=== PATIENT | female | born 1965 | race Caucasian/White ===

== ENCOUNTER → 2017-06-10 | Outpatient (CLI) | payer OTHER ==
[~2017-06-10] MED LIST: CYCL10 PO; IBUP600 PO; NAPR500 PO; Norco 5-325 Ta1 EACH PO; OMEP20ER PO; PROACE100 PO; TRAM50 PO; Zofran Odt8 MG SL
[2017-06-10 16:26] LABS: Anion Gap 7 mmol/L (6-16); Blood Urea Nitrogen 13 mg/dL (8-24); Bun/Creatinine Ratio 23.3 (12.0-20.0); CO2, Blood 23 mmol/L (21-32); Calcium, Blood 8.1 mg/dL (8.5-10.1); Chloride, Blood 108 mmol/L (98-108); Creatinine, Blood 0.56 mg/dL (0.40-1.00); Glomerular Filtration Rate >60 (60-); Glucose, Blood 90 mg/dL (70-99); Potassium, Blood 3.9 mmol/L (3.5-5.5); Sodium, Blood 138 mmol/L (136-145)
== END ==
LOC: LAB EV 15:37 → LAB SHORT 15:37
PROVIDERS: Physician Assistant Medical
DX: R07.89 Other chest pain (principal)
CPT/HCPCS: 80048

== ENCOUNTER 2018-03-05 19:26 | Emergency (ER) | payer OTHER ==
[~2018-03-05] VITALS: Ht 154.9 cm; Wt 57.6 kg
[2018-03-05] MEDS ORDERED: Prilosec Otc20 MG (19:33)
[2018-03-05 20:02] LABS: BASOPHILS ABSOLUTE AUTO 0.04 K/mm3 (0.00-0.23); BASOPHILS PERCENT AUTO 0 % (0-2); EOSINOPHILS ABSOLUTE AUTO 0.05 K/mm3 (0.00-0.68); EOSINOPHILS PERCENT AUTO 1 % (0-6); Hematocrit 42.1 % (33.0-51.0); Hemoglobin 13.5 g/dL (11.5-16.0); IMMATURE GRAN ABSOLUTE AUTO 0.05 K/mm3 (0.00-0.10); IMMATURE GRAN PERCENT AUTO 1 % (0-1); LYMPHOCYTES ABSOLUTE AUTO 1.63 K/mm3 (0.84-5.20); LYMPHOCYTES PERCENT AUTO 18 % (21-46); MONOCYTES ABSOLUTE AUTO 0.76 K/mm3 (0.16-1.47); MONOCYTES PERCENT AUTO 9 % (4-13); Mean Corpuscular HGB 32.1 pg (26.0-34.0); Mean Corpuscular HGB Conc 32.1 g/dL (31.5-36.5); Mean Corpuscular Volume 100 fL (80-100); NEUTROPHILS ABSOLUTE AUTO 6.46 K/mm3 (1.96-9.15); NEUTROPHILS PERCENT AUTO 72 % (41-73); Platelet Count 291 K/mm3 (150-400); RDW Coefficient Variation 13.8 % (11.7-14.2); RDW Standard Deviation 50.8 fL (35.1-46.3); White Blood Cell Count 8.99 K/mm3 (4.00-11.30)
[2018-03-05 20:17] LABS: Alanine Aminotransfer (ALT/SGP 25 U/L (12-78); Albumin, Blood 2.6 g/dL (3.4-5.0); Albumin/Globulin Ratio 0.8 (0.8-1.8); Alk Phos 83 U/L (50-136); Anion Gap 10 mmol/L (6-16); Aspartate Aminotrans (AST/SGOT 24 U/L (12-37); Bilirubin, Total 0.7 mg/dL (0.1-1.0); Blood Urea Nitrogen 9 mg/dL (8-24); Bun/Creatinine Ratio 14.3 (12.0-20.0); CO2, Blood 19 mmol/L (21-32); Calcium, Blood 7.8 mg/dL (8.5-10.1); Chloride, Blood 114 mmol/L (98-108); Creatinine, Blood 0.63 mg/dL (0.40-1.00); Globulin, Blood 3.3 g/dL (2.2-4.0); Glomerular Filtration Rate >60 (60-); Glucose, Blood 101 mg/dL (70-99); Sodium, Blood 143 mmol/L (136-145); Total Protein, Blood 5.9 g/dL (6.4-8.2); Troponin I <0.015 ng/mL (0.000-0.040)
== END 2018-03-05 22:56 | disposition home or self-care (01) ==
LOC: ER 19:26
PROVIDERS: Emergency Medicine
DX: I51.7 Cardiomegaly (principal); R07.9 Chest pain, unspecified; F15.10 Other stimulant abuse, uncomplicated; F10.10 Alcohol abuse, uncomplicated; F41.9 Anxiety disorder, unspecified; K21.9 Gastro-esophageal reflux disease without esophagitis; Z79.899 Other long term (current) drug therapy
CPT/HCPCS: 70496; 70498; 71046; 71275; 80053; 84484; 85025; 93005; 93010; 96374; 96375; 99285-25; J0780; J1170; J1200; Q9967

== ENCOUNTER → 2018-03-12 | Outpatient (CLI) | payer OTHER ==
[~2018-03-12] MED LIST changes: +Prilosec Otc20 MG
[2018-03-12 15:03] LABS: BASOPHILS ABSOLUTE AUTO 0.04 K/mm3 (0.00-0.23); BASOPHILS PERCENT AUTO 1 % (0-2); EOSINOPHILS ABSOLUTE AUTO 0.06 K/mm3 (0.00-0.68); EOSINOPHILS PERCENT AUTO 1 % (0-6); Hematocrit 43.1 % (33.0-51.0); Hemoglobin 14.4 g/dL (11.5-16.0); IMMATURE GRAN PERCENT AUTO 1 % (0-1); LYMPHOCYTES ABSOLUTE AUTO 1.68 K/mm3 (0.84-5.20); LYMPHOCYTES PERCENT AUTO 20 % (21-46); MONOCYTES ABSOLUTE AUTO 0.72 K/mm3 (0.16-1.47); MONOCYTES PERCENT AUTO 8 % (4-13); Mean Corpuscular HGB 31.7 pg (26.0-34.0); Mean Corpuscular HGB Conc 33.4 g/dL (31.5-36.5); Mean Platelet Volume 9.8 fL (9.1-12.4); NEUTROPHILS ABSOLUTE AUTO 5.97 K/mm3 (1.96-9.15); NEUTROPHILS PERCENT AUTO 70 % (41-73); Platelet Count 344 K/mm3 (150-400); RDW Coefficient Variation 14.1 % (11.7-14.2); RDW Standard Deviation 49.4 fL (35.1-46.3); Red Blood Cell Count 4.54 M/mm3 (3.80-5.20); White Blood Cell Count 8.57 K/mm3 (4.00-11.30)
[2018-03-12 15:05] LABS: Mean Corpuscular Volume 95 fL (80-100)
[2018-03-12 15:28] LABS: Alanine Aminotransfer (ALT/SGP 22 U/L (12-78); Albumin, Blood 2.7 g/dL (3.4-5.0); Albumin/Globulin Ratio 0.7 (0.8-1.8); Alk Phos 91 U/L (40-126); Anion Gap 9 mmol/L (6-16); Aspartate Aminotrans (AST/SGOT 24 U/L (12-37); Bilirubin, Total 0.9 mg/dL (0.1-1.0); Blood Urea Nitrogen 15 mg/dL (8-24); CO2, Blood 25 mmol/L (21-32); Calcium, Blood 8.4 mg/dL (8.5-10.1); Chloride, Blood 104 mmol/L (98-108); Creatinine, Blood 0.79 mg/dL (0.40-1.00); Globulin, Blood 3.7 g/dL (2.2-4.0); Glomerular Filtration Rate >60 (60-); Glucose, Blood 100 mg/dL (70-99); Sodium, Blood 138 mmol/L (136-145); Total Protein, Blood 6.4 g/dL (6.4-8.2)
[2018-03-12 15:29] LABS: Troponin I <0.017 ng/mL (0.000-0.040)
== END ==
LOC: LAB EV 15:00 → LAB SHORT 15:00
PROVIDERS: Physician Assistant Medical
DX: R07.89 Other chest pain (principal)
CPT/HCPCS: 80053; 83880; 84484; 85025

== ENCOUNTER 2019-08-21 16:56 | Emergency (ER) | payer OTHER ==
[~2019-08-21] VITALS: Ht 154.9 cm; Wt 68.0 kg
[~2019-08-21 16:56] MED LIST changes: +AMLO5 PO; +ATOR20 PO; +Aspirin EC81 MG PO; +FUROSEMIDE40 MG PO; +HYDCHL25 PO; +Humibid-LA 600600 MG PO; +LOSA50 PO; +Lasix40 MG PO; +POTCHL10ER PO; -Prilosec Otc20 MG; +Prilosec Otc20 MG PO; +REVATIO10 MG/1 ML PO
[2019-08-21] MEDS ORDERED: AMLO5 PO (17:12)
[2019-08-21 17:32] LABS: BASOPHILS ABSOLUTE AUTO 0.04 K/mm3 (0.00-0.23); BASOPHILS PERCENT AUTO 1 % (0-2); EOSINOPHILS ABSOLUTE AUTO 0.09 K/mm3 (0.00-0.68); EOSINOPHILS PERCENT AUTO 2 % (0-6); Hematocrit 37.9 % (33.0-51.0); Hemoglobin 12.6 g/dL (11.5-16.0); IMMATURE GRAN ABSOLUTE AUTO 0.03 K/mm3 (0.00-0.10); IMMATURE GRAN PERCENT AUTO 1 % (0-1); LYMPHOCYTES ABSOLUTE AUTO 1.28 K/mm3 (0.84-5.20); LYMPHOCYTES PERCENT AUTO 26 % (21-46); MONOCYTES ABSOLUTE AUTO 0.76 K/mm3 (0.16-1.47); MONOCYTES PERCENT AUTO 15 % (4-13); Mean Corpuscular HGB 32.7 pg (26.0-34.0); Mean Corpuscular HGB Conc 33.2 g/dL (31.5-36.5); Mean Corpuscular Volume 98 fL (80-100); Mean Platelet Volume 9.2 fL (9.1-12.4); NEUTROPHILS ABSOLUTE AUTO 2.82 K/mm3 (1.96-9.15); NEUTROPHILS PERCENT AUTO 56 % (41-73); Platelet Count 252 K/mm3 (150-400); RDW Coefficient Variation 13.3 % (11.7-14.2); RDW Standard Deviation 48.6 fL (35.1-46.3); Red Blood Cell Count 3.85 M/mm3 (3.80-5.20); White Blood Cell Count 5.02 K/mm3 (4.00-11.30)
[2019-08-21 17:56] LABS: Anion Gap 9 mmol/L (6-16); Blood Urea Nitrogen 5 mg/dL (8-24); Bun/Creatinine Ratio 8.7 (12.0-20.0); CO2, Blood 22 mmol/L (21-32); Calcium, Blood 7.6 mg/dL (8.5-10.1); Chloride, Blood 110 mmol/L (98-108); Creatinine, Blood 0.58 mg/dL (0.40-1.00); Glomerular Filtration Rate >60 (60-); Glucose, Blood 81 mg/dL (70-99); Potassium, Blood 3.8 mmol/L (3.5-5.5); Sodium, Blood 141 mmol/L (136-145); Troponin I <0.015 ng/mL (0.000-0.040)
== END 2019-08-21 19:03 | disposition home or self-care (01) ==
LOC: ER 16:56
PROVIDERS: Physician Assistant
DX: I27.20 Pulmonary hypertension, unspecified (principal); I50.9 Heart failure, unspecified; F41.9 Anxiety disorder, unspecified; K21.9 Gastro-esophageal reflux disease without esophagitis; Z88.5 Allergy status to narcotic agent; Z88.8 Allergy status to other drugs, medicaments and biological substances; Z79.899 Other long term (current) drug therapy; Z79.82 Long term (current) use of aspirin; Z87.891 Personal history of nicotine dependence
CPT/HCPCS: 36415; 71046; 80048; 83880; 84484; 85025; 93005; 93010; 99285-25

== ENCOUNTER 2019-12-23 19:57 | Emergency (ER) | payer OTHER ==
[~2019-12-23] VITALS: Ht 154.9 cm; Wt 68.0 kg
[~2019-12-23 19:57] MED LIST changes: +HYDHCL25 PO; +LIDO700A20 TOP
[2019-12-23 22:26] LABS: Body Fluid Crystals NEG (NEGATIVE)
[2019-12-23 22:29] LABS: BODY FLUID RBC 0.008 M/mm3 (0-0); RBC Count, Synovial Fluid 8000 /mm3 (0-0)
[2019-12-23 22:42] LABS: WBC Count, Synovial Fluid 60640 /mm3 (0-180)
[2019-12-23 22:48] LABS: Lymphs, Synovial Fluid 8 % (0-15); Monocytes/Macrophages, Synovia 1 % (0-65); Neutrophils, Synovial Fluid 91 % (0-24)
[2019-12-23 22:49] LABS: Appearance, Synovial Fluid Cloudy (Clear); Color, Synovial Fluid Dark Yellow (None-P Yel)
== END 2019-12-23 22:21 | disposition home or self-care (01) ==
LOC: ER 19:57
PROVIDERS: Physician Assistant
DX: M25.562 Pain in left knee (principal); F41.9 Anxiety disorder, unspecified; K21.9 Gastro-esophageal reflux disease without esophagitis; I12.9 Hypertensive chronic kidney disease with stage 1 through stage 4 chronic kidney disease, or unspecified chronic kidney disease; I50.9 Heart failure, unspecified; Z88.5 Allergy status to narcotic agent; Z88.8 Allergy status to other drugs, medicaments and biological substances; Z79.82 Long term (current) use of aspirin; Z79.899 Other long term (current) drug therapy; Z79.891 Long term (current) use of opiate analgesic
CPT/HCPCS: 20610; 73564; 89051; 89060; 99283-25; J3301

== ENCOUNTER 2020-08-07 12:32 | Inpatient (IN) | payer OTHER ==
[~2020-08-07] VITALS: Ht 154.9 cm; Wt 65.3 kg
[2020-08-07 13:14] LABS: BASOPHILS ABSOLUTE AUTO 0.04 K/mm3 (0.00-0.23); BASOPHILS PERCENT AUTO 1 % (0-2); EOSINOPHILS PERCENT AUTO 2 % (0-6); Hematocrit 37.4 % (33.0-51.0); Hemoglobin 12.4 g/dL (11.5-16.0); IMMATURE GRAN ABSOLUTE AUTO 0.05 K/mm3 (0.00-0.10); IMMATURE GRAN PERCENT AUTO 1 % (0-1); LYMPHOCYTES ABSOLUTE AUTO 0.83 K/mm3 (0.84-5.20); LYMPHOCYTES PERCENT AUTO 14 % (21-46); MONOCYTES ABSOLUTE AUTO 0.55 K/mm3 (0.16-1.47); MONOCYTES PERCENT AUTO 10 % (4-13); Mean Corpuscular HGB 34.7 pg (26.0-34.0); Mean Corpuscular HGB Conc 33.2 g/dL (31.5-36.5); Mean Corpuscular Volume 105 fL (80-100); Mean Platelet Volume 9.4 fL (9.1-12.4); NEUTROPHILS PERCENT AUTO 73 % (41-73); Platelet Count 190 K/mm3 (150-400); RDW Coefficient Variation 14.6 % (11.7-14.2); RDW Standard Deviation 56.7 fL (35.1-46.3); Red Blood Cell Count 3.57 M/mm3 (3.80-5.20); White Blood Cell Count 5.77 K/mm3 (4.00-11.30)
[2020-08-07 13:39] LABS: Alanine Aminotransfer (ALT/SGP 105 U/L (12-78); Alk Phos 107 U/L (50-136); Anion Gap 11 mmol/L (6-16); Aspartate Aminotrans (AST/SGOT 213 U/L (12-37); Blood Urea Nitrogen 4 mg/dL (8-24); Bun/Creatinine Ratio 6.7 (12.0-20.0); CO2, Blood 20 mmol/L (21-32); Calcium, Blood 7.4 mg/dL (8.5-10.1); Chloride, Blood 106 mmol/L (98-108); Globulin, Blood 3.1 g/dL (2.2-4.0); Glomerular Filtration Rate >60 (60-); Glucose, Blood 86 mg/dL (70-99); Potassium, Blood 3.4 mmol/L (3.5-5.5); Sodium, Blood 137 mmol/L (136-145); Total Protein, Blood 6.1 g/dL (6.4-8.2); Troponin I <0.015 ng/mL (0.000-0.040)
[2020-08-07] MEDS ORDERED: XANAX0.25 MG PO (15:00)
[2020-08-07] MEDS ORDERED: POTA10T PO (15:03)
[2020-08-07] MEDS ORDERED: FUROSEMIDE20 MG PO (15:03)
[2020-08-07] MEDS ORDERED: OMEP20ER PO (15:17)
--- NOTE | 2020-08-07 16:45 | NUR ---
PT ARRIVED TO PCU VIA GURNEY FROM ED, REPORT OBTAINED, A/OX3, BUT SLEEPY, FOLLOWS COMMANDS WELL, DENIES PAIN, LUNGS ARE CLEAR DIM IN BASES, RESP EVEN AND UNLABORED, NO COUGH NOTED, IS ON 2 LITERS 02 BECAUSE SHE GOT SLEEPY FROM THE [place], HRR, TELE IN PLACE RUNNING SR PER MONITOR, SEE STRIP, NO EDEMA NOTED, PP FAINT, CAP REFILL <3SEC, VS STABLE, AFEBRILE, IV SITES ARE CLEAR AND PATENT, BTX 4 ABD FLAT SOFT NONTENDER, VOIDS WITHOUT DIFF, SKIN C/W/D, MAEW, CHRISTEN, ORIENTED TO ROOM LAYOUT AND CALL SYSTEM, CALL LIGHT IN REACH.
--- NOTE | 2020-08-07 17:13 | NUR ---
DR MACHUCA TO PT'S BEDSIDE. EKG COMPLETED ORDERED AND HANDED TO DR MACHUCA. VERBAL ORDERS RECEIVED FOR PULMONARY CTA AND SALINE. NURSING BINMAN NOTIFIED BY CREAM CHEESE MAKER OF STAT ECHO ORDER. DR MACHUCA OK WITH PT EATING AT THIS TIME, ORDER CHANGED. PRIMARY RN MINERVA UPDATED.
[2020-08-07] MEDS ORDERED: MELATONIN5 M1 PO (18:41)
--- NOTE | 2020-08-07 19:13 | NUR ---
DR. MACHUCA WAS IN, FELT THAT HER LOOSING CONCIOUSNESS WAS SECONDARY TO A DOSE OF FENTANYL, EKG DONE, ECHO DONE, AND IS ON HER WAY DOWN TO RADIOLOGY FOR CTA, NEW IV PLACED TO LAC.
--- NOTE | 2020-08-07 23:47 | NUR ---
PROVIDER 2199 - TALKED TO ROBERT MADDEN REGARDING PT'S SEVERE UPPER ABD/CP PAIN. DISCUSSED LABS, PRIOR EKG, PROGRESS REPORTS, ETC. PATHOLOGY LABORATORY AIDE WONDERING IF THIS IS PAIN IS RELATED TO SEVERE PUMLONARY HTN. LASIX IV ORDERED AND ADMINISTERED. DISCUSSED WITH PATHOLOGY LABORATORY AIDE THE POSSIBILITY OF PANCREATITIS. LIPASE ORDERED. 1MG IV DILAUDID ORDERED AND ADMINISTERED. PT'S PAIN LESSENING WITH THIS. NO REACTION NOTED. 2239 - DR BARRAZA CALLED WITH RESULTS OF CTA. CTA SHOWS ACUTE PANCREATITIS. NO CARDIAC ETIOLOGY NOTED. ROBERT MADDEN NOTIFIED. PLACING ORDERS NOW.
--- NOTE | 2020-08-08 05:36 | NUR ---
SHIFT SUMMARY POST CTA RESULTS SHOWING PANCREATITIS, IV DILAUDID SUCCESFUL AT LIMITING PAIN. PT'S PAIN VERY RECEPTIVE TO DILAUDID BUT PT DOES REQUIRE OXYGEN AFTER ASSESMENT DUE TO DESATURATION TO LOW 80'S SPO2. ONE EPISODE OF NAUSEA, MEDICATED PER EMAR SUCCESFULLY. FLUIDS INFUSING. PT STRICT NPO NOW. PT EDUCATED THAT HE HAS PANCREATITIS AND THE REASON FOR STRICT NPO. PT RECEPTIVE. USES CALL LIGHT APPROPRIATELY.
[2020-08-08 05:42] LABS: BASOPHILS ABSOLUTE AUTO 0.03 K/mm3 (0.00-0.23); BASOPHILS PERCENT AUTO 0 % (0-2); EOSINOPHILS ABSOLUTE AUTO 0.02 K/mm3 (0.00-0.68); EOSINOPHILS PERCENT AUTO 0 % (0-6); Hematocrit 40.8 % (33.0-51.0); Hemoglobin 13.3 g/dL (11.5-16.0); IMMATURE GRAN ABSOLUTE AUTO 0.05 K/mm3 (0.00-0.10); IMMATURE GRAN PERCENT AUTO 1 % (0-1); LYMPHOCYTES ABSOLUTE AUTO 0.49 K/mm3 (0.84-5.20); LYMPHOCYTES PERCENT AUTO 6 % (21-46); MONOCYTES ABSOLUTE AUTO 0.56 K/mm3 (0.16-1.47); MONOCYTES PERCENT AUTO 7 % (4-13); Mean Corpuscular HGB 34.5 pg (26.0-34.0); Mean Corpuscular HGB Conc 32.6 g/dL (31.5-36.5); Mean Corpuscular Volume 106 fL (80-100); Mean Platelet Volume 9.5 fL (9.1-12.4); NEUTROPHILS ABSOLUTE AUTO 7.49 K/mm3 (1.96-9.15); NEUTROPHILS PERCENT AUTO 87 % (41-73); Platelet Count 138 K/mm3 (150-400); RDW Coefficient Variation 14.9 % (11.7-14.2); RDW Standard Deviation 58.2 fL (35.1-46.3); Red Blood Cell Count 3.85 M/mm3 (3.80-5.20); White Blood Cell Count 8.64 K/mm3 (4.00-11.30)
[2020-08-08 05:58] LABS: Anion Gap 11 mmol/L (6-16); Blood Urea Nitrogen 8 mg/dL (8-24); Bun/Creatinine Ratio 8.5 (12.0-20.0); CO2, Blood 21 mmol/L (21-32); Calcium, Blood 7.3 mg/dL (8.5-10.1); Chloride, Blood 104 mmol/L (98-108); Creatinine, Blood 0.94 mg/dL (0.40-1.00); Glomerular Filtration Rate >60 (60-); Glucose, Blood 111 mg/dL (70-99); Potassium, Blood 4.3 mmol/L (3.5-5.5); Sodium, Blood 136 mmol/L (136-145)
[2020-08-08 08:49] LABS: CHOL/HDL RATIO 1.7; Cholesterol 191 mg/dL (50-200); HDL Cholesterol 114 mg/dL (>39); LDL/HDL RATIO 0.5; Low Density Lipoprotein Chol 53 mg/dL (0-110); Triglycerides 120 mg/dL (30-160); Very Low Density Lipoprot Chol 24 mg/dL (6-32)
--- NOTE | 2020-08-08 17:27 | NUR ---
SHIFT SUMMARY: ASSUMED CARE OF THE PATIENT AT 07:24 THIS AM, PATIENT HAS BEEN THIS EVENING SR IN THE 80'S - TO THE LOW 90'S ON 4.5 L VIA NC SAT AT 94-95 %SPO2 THIS EVENIN, DENIES CHEST PAIN BUT STILL IS HAVING UPPER QUANDRANT ABD PAIN THAT HAS GOTTEN HIGH A 7, BUT WITH REPOSITIONING, AND PAIN MEDS PER EMAR PATIENT HAS BEEN SAFETLY DOWN TO A 2-3, TODAL HAS BEEN INEFFECTIVE, BUT DILAUDED 1 MG ~ EVERY 3 HOURS HAS BEEN EFFECTIVELY TREATING HER PAIN. US OF THE ABD PREFORMED TODAY THAT HAS NOT BEEN SIGNED OF YET. PATIENT HAS ONLY BEEN REACHING THE 160'S WITH INCREASED LEVELS OF PAIN, PATIENT AMBULATES TO THE BEDSIDE WITH NO ISSUES, USES THE CALL LIGHT APPROPRIATELY.
--- NOTE | 2020-08-09 04:54 | NUR ---
SHIFT SUMMARY PATIENT FOUND TO BE A PLEASANT LADY WHO IS A&OX4. PAIN CONTROL BIG GOAL FOR PATIENT OVERNIGHT, PRN DILAUDID Q2H KEEPING AT TOLERABLE LEVEL. SR/ST ON THE MONITOR. ON 4L NC SATING LOW 90'S. [facility] [place] MD TO ORDER RESP PROTOCOL IN CASE NEEDED BREATHING TREATMENT. WAS ABLE TO CLEAR WHEEZING WITH COUGH AND MORE RELAXED BREATHING. IS GIVEN AND INSTRUCTED ON USE. WAS TRYING TO ADVANCE DIET TO CLD SLOWLY AND PATIENT NOT TOLERATING WELL WITH 2 EPISODES OF VOMITING OVERNIGHT. ABDOMEN SEEMED TO INCREASE AFTER INTAKE SO CONTINUEING TO TAKE IT SLOW. UP AD BRANDI TO BSC. NO ACUTE CONCERNS AT THIS TIME. WILL CONTINUE TO MONITOR UNTIL REPORT GIVEN TO DAYSHIFT RN.
[2020-08-09 05:13] LABS: Albumin/Globulin Ratio 0.9 (0.8-1.8); Bilirubin, Total 4.2 mg/dL (0.1-1.0); Bun/Creatinine Ratio 12.5 (12.0-20.0); Calcium, Blood 7.1 mg/dL (8.5-10.1); Creatinine, Blood 1.28 mg/dL (0.40-1.00); Globulin, Blood 3.3 g/dL (2.2-4.0); Magnesium, Blood 2.6 mg/dL (1.6-2.4); Phosphorus, Blood 1.5 mg/dL (2.5-4.9); Potassium, Blood 4.2 mmol/L (3.5-5.5); Total Protein, Blood 6.3 g/dL (6.4-8.2)
[2020-08-09 05:14] LABS: Hematocrit 38.2 % (33.0-51.0); Hemoglobin 12.6 g/dL (11.5-16.0); Mean Corpuscular HGB 35.1 pg (26.0-34.0); Mean Corpuscular Volume 106 fL (80-100); Mean Platelet Volume 9.9 fL (9.1-12.4); NRBC ABSOLUTE 0.12 K/mm3 (0.00-0.02); NRBC Auto 1.2 /100 WBC (0.0-0.2); RDW Coefficient Variation 15.6 % (11.7-14.2); RDW Standard Deviation 61.5 fL (35.1-46.3); Red Blood Cell Count 3.59 M/mm3 (3.80-5.20); White Blood Cell Count 9.81 K/mm3 (4.00-11.30)
[2020-08-09 05:16] LABS: Platelet Count 39 K/mm3 (150-400)
[2020-08-09 06:18] LABS: International Normalized Ratio 0.99; Prothrombin Time Results 10.7 Sec (9.7-11.5)
[2020-08-09 06:40] LABS: Platelet Count 39 K/mm3 (150-400)
[2020-08-09 12:03] LABS: Source, Urine Clean Catch
[2020-08-09 12:21] LABS: Appearance, Urine Clear (Clear); Blood, Urine 5+ (Neg); Color, Urine Amber (P-Yellow); Glucose Qualitative, Urine Neg (Neg); Ketones, Urine 3+ (Neg); Leukocyte Esterase, Urine 1+ (Neg); Nitrite, Urine Neg (Neg); Protein, Urine 3+ (Neg); Specific Gravity, Urine 1.025 (1.003-1.022); Urobilinogen, Urine 1+ (Normal)
[2020-08-09 13:14] LABS: Bilirubin, Urine 2+ (Neg)
[2020-08-09 13:16] LABS: Bacteria Many /hpf; Squamous Epithelial Cells Mod /hpf (Few)
--- NOTE | 2020-08-09 18:36 | NUR ---
SHIFT SUMMARY: PATIENT HAS BEEN FEELING MORE WEAK, AND USES CALL LIGHT APPORPRIATELY. PATIENT IS ON NC AT 4.5L TO KEEP SPO2>92-94. PATIENT HAS HAD CRITICAL PLATELETS FOUND LAST NIGHT, HELD LOVONOX, EDUCATEED ON INCETIVE SPIROMETRY, INCREASING WHEEXING IN THE UPPER RESPIRATORY TRACT, RT CONSULTED 2 TIMES WITH PATIENT ADN MULTIPLE TIMES WITH SRN AND RN, PROVIDER AWARE. PAIN HAS BEEN MANAGED WITH EMR ORDERS. SOME BLOOD IN HER URINE, PROVIDER AWARE.
[2020-08-10 03:44] LABS: BASOPHILS ABSOLUTE AUTO 0.04 K/mm3 (0.00-0.23); BASOPHILS PERCENT AUTO 1 % (0-2); EOSINOPHILS ABSOLUTE AUTO 0.18 K/mm3 (0.00-0.68); EOSINOPHILS PERCENT AUTO 2 % (0-6); Hematocrit 31.6 % (33.0-51.0); Hemoglobin 10.3 g/dL (11.5-16.0); Mean Corpuscular HGB 34.9 pg (26.0-34.0); Mean Corpuscular HGB Conc 32.6 g/dL (31.5-36.5); Mean Corpuscular Volume 107 fL (80-100); NRBC ABSOLUTE 0.12 K/mm3 (0.00-0.02); NRBC Auto 1.6 /100 WBC (0.0-0.2); RDW Coefficient Variation 15.9 % (11.7-14.2); RDW Standard Deviation 62.9 fL (35.1-46.3); Red Blood Cell Count 2.95 M/mm3 (3.80-5.20); White Blood Cell Count 7.37 K/mm3 (4.00-11.30)
[2020-08-10 03:47] LABS: IMMATURE GRAN ABSOLUTE AUTO 0.16 K/mm3 (0.00-0.10); IMMATURE GRAN PERCENT AUTO 2 % (0-1); LYMPHOCYTES ABSOLUTE AUTO 1.12 K/mm3 (0.84-5.20); LYMPHOCYTES PERCENT AUTO 15 % (21-46); MONOCYTES ABSOLUTE AUTO 0.58 K/mm3 (0.16-1.47); MONOCYTES PERCENT AUTO 8 % (4-13); NEUTROPHILS ABSOLUTE AUTO 5.29 K/mm3 (1.96-9.15); NEUTROPHILS PERCENT AUTO 72 % (41-73); Platelet Count 29 K/mm3 (150-400)
[2020-08-10 04:02] LABS: Albumin, Blood 2.6 g/dL (3.4-5.0); Albumin/Globulin Ratio 0.8 (0.8-1.8); Bun/Creatinine Ratio 12.7 (12.0-20.0); Calcium, Blood 6.8 mg/dL (8.5-10.1); Creatinine, Blood 1.18 mg/dL (0.40-1.00); Globulin, Blood 3.2 g/dL (2.2-4.0); Magnesium, Blood 2.2 mg/dL (1.6-2.4); Phosphorus, Blood 1.7 mg/dL (2.5-4.9); Potassium, Blood 3.8 mmol/L (3.5-5.5); Total Protein, Blood 5.8 g/dL (6.4-8.2)
--- NOTE | 2020-08-10 05:35 | NUR ---
SHIFT SUMMARY PT IS ALERT AND ORIENTED X4. VITALS HAVE BEEN STABLE WITH SATS ABOVE 92% ON 4L O2. THERE HAVE BEEN NO ACUTE CHANGES. CIWAS HAVE BEEN BELOW 8 T/O SHIFT. PT HAS BEEN VERY PAINFUL AND IS REQUIRING IV PAIN MEDICATIONS Q2 HOURS. PT IS UP TO BSC BY HERSELF AND IS TOLERATIG WELL. NS INFUSING. USES CALL LIGHT APPROPRIETLY.
--- NOTE | 2020-08-10 17:16 | NUR ---
UPDATE PHYSICIAN NOTIFIED OF PT'S INCREASE IN PAIN. ORDERS TO INCREASE IV PAIN MEDICATION AND D/C PO PAIN MEDICATION. WILL EDUCATE PER PHYSICIAN THAT PT WILL NOT BE ABLE TO PROGRESS WITH MORE PO INTAKE UNTIL PAIN IS UNDER CONTROL WITH PO PAIN MEDICATIONS.
--- NOTE | 2020-08-10 18:46 | NUR ---
SHIFT SUMMARY PT ALERT AND ORIENTED X 4. HR STABLE. BP STABLE. OXYGEN SATURATION MAINTAINED ABOVE 92% ON 4 L OF OXYGEN VIA NC. PT IND TO COMMODE NEEDED. PT REPORTS PAIN IN ABD T/O SHIFT. MEDICATED PER EMAR. PT TO CT SCAN THIS AFTERNOON. PHYSICIAN NOTIFIED OF PT'S INCREASE IN PAIN. ORDERS PROVDIED, SEE EMAR. WILL CONTINUE TO MONITOR UNTIL REPORT GIVEN TO NIGHTSHIFT RN.
[2020-08-11 04:13] LABS: BASOPHILS ABSOLUTE AUTO 0.05 K/mm3 (0.00-0.23); BASOPHILS PERCENT AUTO 1 % (0-2); Hematocrit 30.9 % (33.0-51.0); Hemoglobin 9.7 g/dL (11.5-16.0); LYMPHOCYTES ABSOLUTE AUTO 0.62 K/mm3 (0.84-5.20); LYMPHOCYTES PERCENT AUTO 7 % (21-46); MONOCYTES ABSOLUTE AUTO 0.79 K/mm3 (0.16-1.47); MONOCYTES PERCENT AUTO 8 % (4-13); Mean Corpuscular HGB 33.4 pg (26.0-34.0); Mean Corpuscular HGB Conc 31.4 g/dL (31.5-36.5); Mean Corpuscular Volume 107 fL (80-100); NRBC ABSOLUTE 0.09 K/mm3 (0.00-0.02); RDW Coefficient Variation 15.7 % (11.7-14.2); RDW Standard Deviation 61.3 fL (35.1-46.3)
[2020-08-11 04:18] LABS: EOSINOPHILS ABSOLUTE AUTO 0.05 K/mm3 (0.00-0.68); EOSINOPHILS PERCENT AUTO 1 % (0-6); IMMATURE GRAN PERCENT AUTO 4 % (0-1); Mean Platelet Volume 12.7 fL (9.1-12.4); NEUTROPHILS ABSOLUTE AUTO 7.49 K/mm3 (1.96-9.15); NEUTROPHILS PERCENT AUTO 80 % (41-73)
[2020-08-11 04:19] LABS: Platelet Count 41 K/mm3 (150-400)
[2020-08-11 04:31] LABS: Alanine Aminotransfer (ALT/SGP 63 U/L (12-78); Albumin, Blood 2.5 g/dL (3.4-5.0); Albumin/Globulin Ratio 0.7 (0.8-1.8); Alk Phos 84 U/L (50-136); Anion Gap 10 mmol/L (6-16); Aspartate Aminotrans (AST/SGOT 103 U/L (12-37); Bilirubin, Total 4.1 mg/dL (0.1-1.0); Blood Urea Nitrogen 12 mg/dL (8-24); Bun/Creatinine Ratio 13.3 (12.0-20.0); CO2, Blood 20 mmol/L (21-32); Calcium, Blood 7.3 mg/dL (8.5-10.1); Chloride, Blood 107 mmol/L (98-108); Globulin, Blood 3.6 g/dL (2.2-4.0); Glomerular Filtration Rate >60 (60-); Glucose, Blood 106 mg/dL (70-99); Sodium, Blood 137 mmol/L (136-145); Total Protein, Blood 6.1 g/dL (6.4-8.2)
[2020-08-11 04:33] LABS: BAND PERCENT MAN 4 % (0-8); BASOPHILS PERCENT MAN 0 % (0-2); EOSINOPHILS ABSOLUTE MAN 0.09 K/mm3 (0.00-0.68); EOSINOPHILS PERCENT MAN 1 % (0-6); LYMPHOCYTES ABSOLUTE MAN 0.28 K/mm3 (0.84-5.20); LYMPHOCYTES PERCENT MAN 3 % (21-46); METAMYELOCYTE ABSOLUTE MAN 0.09 K/mm3 (0.00-0.00); METAMYELOCYTE PERCENT MAN 1 % (0-0); MONOCYTES ABSOLUTE MAN 0.09 K/mm3 (0.16-1.47); MONOCYTES PERCENT MAN 1 % (4-13); NEUTROPHILS ABSOLUTE MAN 8.83 K/mm3 (1.96-9.15); SEG NEUTROPHILS PERCENT MAN 90 % (41-73); TOTAL CELLS COUNTED 100
--- NOTE | 2020-08-11 05:55 | NUR ---
SHIFT SUMMARY PATIENT IS A PLEASANT LADY WHO IS A&OX4, MAC, AND FOLLOWING COMMANDS. PAIN CONTROL BIG GOAL FOR PATIENT OVERNIGHT. PRN DILAUDID ALMOST EVERY 2H KEEPING AT TOLERABLE LEVEL. PAIN INCREASES WITH ANY ORAL INTAKE AND BEING UP IN ROOM. SR MOSTLY BUT ST ON THE MONITOR WHEN UP IN ROOM. TACHYPNEA ALSO NOTED WITH EXERTION. ONE PRN BREATHING TREATMENT REQUESTING MID SHIFT FOR WHEEZING WHICH IMPROVED SOME. ENCOURAGIN IS USE. ON 4LNC SATING LOW 90'S. REQUIRING ZOFRAN REGURALY FOR INTERMITTENT NAUSEA. ABLE TO INCREASE ORAL INTAKE IF REGIMEN UP. NO BM SINCE SUNDAY BUT PATIENT NOT UNCOMFORTABLE AND REFUSES INTERVENTION. VOIDING PER BSC WITH SLIGHT HEMATURIA NOTED BUT IMPROVING. UP IND IN ROOM. IV FLUIDS INFUSING PER ORDER. NO ACUTE CONCERNS AT THIS TIME. WILL CONTINUE TO MONITOR.
--- NOTE | 2020-08-11 15:59 | NUR ---
PT RECEIVED HYDROMORPHONE 1MG IV 4X PER MAR FOR 10/10 RUQ PAIN; ONDANSETRON ADMINISTERED 2X PER MAY FOR SEVERE NAUSEA; PT WAS ABLE TO EAT JELLO X2 AND VERBALIZED BEING ABLE TO KEEP IT DOWN; TRANSFER ORDERS PLACED; REPORT GIVEN TO MAXINE NGUYEN, AT 1424; ROOM DIRTY UNTIL 1501, PT TRANSFERRED TO MED SURG ROOM 302 AT 1530; PT LEFT WITH PERSONAL EFFECTS, TELEMETRY MONITORING, OXYGEN THERAPY, AND IV FLUID INFUSION VIA WHEELCHAIR ACCOMPANIED BY RN AND VISITOR; PT DENIES ADDITIONAL CONCERNS AT THIS TIME
--- NOTE | 2020-08-11 17:40 | NUR ---
TRANSFER/SHIFT SUMMARY PT TRANSFERRED TO ROOM 302 FROM PCU VIA WHEELCHAIR. PT A&OX4. MEDICATED FOR ABDOMINAL PAIN WITH OXYCODONE PER EMAR. PT HAS EXPIRATORY WHEEZES T/O. IVF INFUSING WITHOUT DIFFICULTY. NO ACUTE CHANGES OR DISTRESS AT THIS TIME. CALL LIGHT IN REACH. WILL CONTINUE TO MONITOR AND REPORT TO ONCOMING RN.
[2020-08-12 04:37] LABS: Hemoglobin 9.6 g/dL (11.5-16.0); Mean Corpuscular HGB 34.8 pg (26.0-34.0); Mean Corpuscular HGB Conc 33.1 g/dL (31.5-36.5); Mean Corpuscular Volume 105 fL (80-100); Mean Platelet Volume 12.2 fL (9.1-12.4); Platelet Count 84 K/mm3 (150-400); Red Blood Cell Count 2.76 M/mm3 (3.80-5.20); White Blood Cell Count 9.58 K/mm3 (4.00-11.30)
--- NOTE | 2020-08-12 05:02 | NUR ---
EMBEDDED LINUX ENGINEER SUMMARY PT AAOX4 AND INDEPENDENT TO THE BSC. STILL HAVING INTERMITTENT ABD PAIN, MEDICATED WITH IV DILAUDID AND PO PAIN MEDS PER EMAR. PT HAVING INTERMITTENT NON PRODUCTIVE COUGHING FITS. COUGHING FITS USUALLY FOLLOWED BY SOME WHEEZING HOWEVER PT REFUSES BREATHING TREATMENTS. THESE FITS DO CAUSE PT TO GET VERY WORKED UP AND ANXIOUS WHICH MAKES HER BREATHING WORSE. MEDICATED X1 WITH 1 MG IV ATIVAN WHICH HELPED PT RELAX AND BREATHE EASIER. PT STARTED FULL LIQUID DIET ON DAY SHIFT AND DID VOMIT X1 TONIGHT. VSS, WILL CONTINUE TO MONITOR.
[2020-08-12 05:14] LABS: Anion Gap 6 mmol/L (6-16); Blood Urea Nitrogen 17 mg/dL (8-24); Bun/Creatinine Ratio 18.5 (12.0-20.0); CO2, Blood 23 mmol/L (21-32); Calcium, Blood 7.8 mg/dL (8.5-10.1); Chloride, Blood 109 mmol/L (98-108); Creatinine, Blood 0.92 mg/dL (0.40-1.00); Glomerular Filtration Rate >60 (60-); Glucose, Blood 90 mg/dL (70-99); Potassium, Blood 3.4 mmol/L (3.5-5.5); Sodium, Blood 138 mmol/L (136-145)
--- NOTE | 2020-08-12 08:40 | NUR ---
VITALS/ANXIETY PT'S BLOOD PRESSURE 150/101 AND HR 120. PT IS WHEEZING, ANXIOUS, AND HAS A TEMP OF 99.8 AFTER AWAKENED BY PHYSICIAN. DR. CARTER AWARE OF PT'S VITALS AT THIS TIME. TYLENOL ORDERED FOR INCREASED TEMP AND ATIVAN FOR ANXIETY. NO NEW ORDERS AT THIS TIME FOR BLOOD PRESSURE AND HEART RATE. WILL CONTINUE TO MONITOR. RESPIRATORY TO GIVE PT A BREATHING TREATMENT. CALL LIGHT IN REACH.
--- NOTE | 2020-08-12 18:13 | NUR ---
SHIFT SUMMARY PT CONTINUES TO HAVE ABDOMINAL PAIN, RATING 7-9/10. MEDICATED FOR PAIN FREQUENTLY THIS SHIFT. MEDICATED FOR NAUSEA X1 THIS SHIFT. PT IS VERY ANXIOUS WHEN AWAKE, EXCEPT WHEN SPOUSE IS HERE. PT HAS BEEN VERY SLEEPY AND THIS RN DID NOT FEEL COMFORTABLE ADMINISTERING ATIVAN FOR ANXIETY WITH HOW OFTEN PT RECIEVES PAIN MEDICATION. IVF INFUSING WITHOUT DIFFICULTY. PT UP TO BSC WITH ASSIST. BED ALARM ON FOR SAFETY. PT BECOMES VERY SHORT OF BREATH AND "WHEEZY" IN THE UPPER AIRWAY WITH ANY EXERTION. OXYGEN AT 1-L LITERS VIA NC FOR PAIN MEDICATION ADMINISTERING. NO SIGNS OF DISTRESS AT THIS TIME. CALL LIGHT IN REACH. WILL CONTINUE TO MONITOR AND REPORT TO ONCOMING RN.
[2020-08-13 04:46] LABS: Hematocrit 30.3 % (33.0-51.0); Hemoglobin 9.8 g/dL (11.5-16.0); Mean Corpuscular HGB 34.4 pg (26.0-34.0); Mean Corpuscular HGB Conc 32.3 g/dL (31.5-36.5); Mean Corpuscular Volume 106 fL (80-100); Mean Platelet Volume 11.1 fL (9.1-12.4); NRBC ABSOLUTE 0.14 K/mm3 (0.00-0.02); NRBC Auto 1.3 /100 WBC (0.0-0.2); Platelet Count 147 K/mm3 (150-400); RDW Coefficient Variation 16.4 % (11.7-14.2); RDW Standard Deviation 63.9 fL (35.1-46.3); Red Blood Cell Count 2.85 M/mm3 (3.80-5.20); White Blood Cell Count 10.79 K/mm3 (4.00-11.30)
[2020-08-13 05:11] LABS: Alanine Aminotransfer (ALT/SGP 58 U/L (12-78); Albumin, Blood 2.4 g/dL (3.4-5.0); Albumin/Globulin Ratio 0.6 (0.8-1.8); Alk Phos 83 U/L (50-136); Anion Gap 8 mmol/L (6-16); Aspartate Aminotrans (AST/SGOT 69 U/L (12-37); Blood Urea Nitrogen 12 mg/dL (8-24); Bun/Creatinine Ratio 15.8 (12.0-20.0); CO2, Blood 21 mmol/L (21-32); Calcium, Blood 7.8 mg/dL (8.5-10.1); Chloride, Blood 110 mmol/L (98-108); Creatinine, Blood 0.76 mg/dL (0.40-1.00); Globulin, Blood 3.7 g/dL (2.2-4.0); Glomerular Filtration Rate >60 (60-); Glucose, Blood 72 mg/dL (70-99); Potassium, Blood 3.6 mmol/L (3.5-5.5); Sodium, Blood 139 mmol/L (136-145); Total Protein, Blood 6.1 g/dL (6.4-8.2)
--- NOTE | 2020-08-13 05:20 | NUR ---
HERBARIUM CURATOR SUMMARY PT CONTINUES TO DEMAND PAIN MEDS EVERY 2-3 HOURS FOR ABD PAIN. PT ALSO CONTINUES TO BE ANXIOUS AND WORKS HERSELF UP FREQUENTLY. PT HAS SLEPT GOOD PORTION OF THE NIGHT BUT IS ASKING FOR PAIN MEDS WHENEVER SHE WAKES UP. LIPASE WNL THIS AM AT 353. GAVE 0.5 MG PO ATIVAN X1 TONIGHT TO HELP PT WITH ANXIETY BUT DID NOT SEEM TO BE VERY EFFECTIVE, ASKED FOR PAIN MEDS SHORTLY AFTER. VSS, WILL CONTINUE TO MONITOR.
--- NOTE | 2020-08-13 17:36 | NUR ---
SHIFT SUMMARY- PT IS A/O, COOPERATIVE. HER APPETITE IS POOR. SHE IS RECIEVING PRN PAIN MEDICATIONS, SHE WAS SWITCHED FROM IV TO ORAL MEDICATIONS TODAY. SHE SLEPT FREQUENTLY THIS SHIFT. HER WAS AT THE BEDSIDE THIS AFTERNOON. SHE IS USING THE BSC. SHE REPORTS FREQUENT VOIDS. HER BED IS IN THE LOW POSITION AND CALL LIGHT IS WITHIN REACH.
--- NOTE | 2020-08-14 01:30 | NUR ---
08/13/202009 PT LYING IN BED, REPORTS EPIGASTRIC PAIN OF 7/10. OFFERED TYLENOL IT IS NOT QUITE TIME FOR HER OTHER PAIN MEDICATION, PT DECLINED. PT REQUESTED AND RECIEVED ATIVAN, SHE DID NOT APPEAR TO BE ANXIOUS BUT STATED SHE FELT LIKE SHE NEEDED IT. REPORTS SOB WITH EXERTION. ON RA AT 95%. NO OTHER APPARENT SIGNS OF DISTRESS. CALL LIGHT IS IN REACH.
--- NOTE | 2020-08-14 01:59 | NUR ---
08/13/20 2558 I HAD PREVIOUSLY CHECKED ON PT AND SHE APPEARED TO BE SLEEPING, NO APPARENT SIGNS OF DISTRESS, NO MOANING OR GAURDING HER ABD. BREATHING EVEN, UNLABORED, NO WHEEZES HEARD AUDIBLY. PT WOKE UP AND REQUESTED PAIN MEDICATION, BEGAN MOANING, CAN HEAR WHEEZING THAT LOOKS LIKE SHE IS ATTEMPTING TO BREATH HARD. O2 ON RA WAS 95%, LUNGS WERE CLEAR. SIGNS OF DISTRESS ON FACE ONLY WHEN AWAKE. ADMINISTERED DILAUDED PO, WILL EVAL FOR EFFECT. NO OTHER APPARENT SIGNS OF DISTRESS. PT DENIES NAUSEA. CALL LIGHT IS IN REACH.
--- NOTE | 2020-08-14 02:03 | NUR ---
PT LYING IN BED, EYES CLOSED, APPEARS TO BE RESTING. BREATHING IS EVEN, UNLABORED. NO APPARENT SIGNS OF DISTRESS. CALL LIGHT IS IN REACH. NO SIGN OF DISTRESS ON HER FACE, NO WHEEZING OR MOANING OR GAURDING OF ABD SEEN OR HEARD.
--- NOTE | 2020-08-14 03:19 | NUR ---
PT LYING IN BED, EYES CLOSED, APPEARS TO BE RESTING. BREATHING IS EVEN, UNLABORED. NO AUDIBLE WHEEZING OR SOB IS APPARENT AT THIS TIME. NO DISTRESS IS APPARENT ON PT'S FACE. NO MOANING OR GAURDING OF ABD. CALL LIGHT IS IN REACH.
--- NOTE | 2020-08-14 04:20 | NUR ---
PT REQUESTED AND RECIEVED SOME BENADRYL. WILL EVAL FOR EFFECT. PT HAS SOME AUDIBLE WHEEZES, UNABLE TO TELL WETHER SHE IS ATTEMPTING TO BREATH HARDER AT THIS TIME. APPEARS RELAXED. WANTS TO BE ABLE TO GO BACK TO SLEEP. DENIES NEED FOR ANYTHING ELSE AT THIS TIME. NO OTHER APPARENT SIGNS OF DISTRESS. CALL LIGHT IS IN REACH.
--- NOTE | 2020-08-14 04:43 | NUR ---
PT AAO X 4, ON RA. REPORTS ABD PAIN, GOT DILAUDED PO 2MG X 1. REQUESTED AND RECIEVED BENADRYL, WANTED IT FOR SLEEP. REQUESTED ATIVAN AT HS FOR ANXIETY THOUGH ANXIETY WAS NOT APPARENT.
--- NOTE | 2020-08-14 04:49 | NUR ---
SEE 3136 NURSES NOTE, SHIFT SUMMARY CHARTED ON NURSES NOTE.
--- NOTE | 2020-08-14 05:47 | NUR ---
PT LYING IN BED, EYES CLOSED, APPEARS TO BE RESTING. BREATHING IS EVEN, UNLABORED. NO APPARENT SIGNS OF DISTRESS. CALL LIGHT IS IN REACH. NO OTHER CHANGES THIS SHIFT.
[2020-08-14] MEDS ORDERED: HYDMOR2 PO (10:37)
[2020-08-14] MEDS ORDERED: PRED20 PO (10:38)
[2020-08-14] MEDS ORDERED: CEFD300 PO (10:38)
--- NOTE | 2020-08-14 12:11 | NUR ---
IV ACCESS REMOVAL PT IVS REMOVED IN PREP FOR HER DISCHARGE. AFTER REMOVAL OF THE 20G IV IN HER L AC, TWO SMALL WOUNDS WERE FOUND UNDER THE IV DRESSING. APPROX 0.25X0.25 CM IN SIZE. ONE WAS AROUND THE INSERTION SITE. PT STATED SHE HAD NO PAIN. IV REMOVED & SIZE SRCUBBED WITH ALCOHOL. CLEAN DRESSING PLACED OVERTOP. NO REDNESS NOTED AROUND THE SITE. PT INSTRUCTED TO WATCH THE SITE, KEEP IN CLEAN & COVERED, AND RETURN IF IT WORSENS. DR. CARTER NOTIFIED AND IS COMFORTABLE WITH DC ON ABX.
--- NOTE | 2020-08-14 13:12 | NUR ---
DISCHARGE PT DISCHARED AT 1305. PT & EDUCATED ON NEW MEDS AND FOLLOW UP INSTRUCTIONS. BOTH DENY NEED FOR FURTHER INSTRUCTION. HARD SCRIPT GIVEN TO PT. PT ESCORTED OUT VIA WHEELCHAIR BY AIDE & DRIVEN HOME BY SPOUSE.
== END 2020-08-14 13:05 | disposition home or self-care (01) | DRG 438 ==
LOC: ER 12:32 → PCU 12:33 → MEDS 08-08 00:25 → PCU 08-08 16:25 → MEDS 08-11 15:35
PROVIDERS: Emergency Medicine; Internal Medicine; Nurse Practitioner Acute Care; ADMIT Internal Medicine
DX: K85.90 Acute pancreatitis without necrosis or infection, unspecified (principal); J96.01 Acute respiratory failure with hypoxia; N17.9 Acute kidney failure, unspecified; I47.2 Ventricular tachycardia; F10.20 Alcohol dependence, uncomplicated; K21.9 Gastro-esophageal reflux disease without esophagitis; E78.5 Hyperlipidemia, unspecified; E87.6 Hypokalemia; I27.20 Pulmonary hypertension, unspecified; D69.6 Thrombocytopenia, unspecified; R55 Syncope and collapse; K80.80 Other cholelithiasis without obstruction; Z88.5 Allergy status to narcotic agent; Z88.8 Allergy status to other drugs, medicaments and biological substances; F41.9 Anxiety disorder, unspecified; I50.812 Chronic right heart failure; I11.0 Hypertensive heart disease with heart failure; Z90.49 Acquired absence of other specified parts of digestive tract; Z98.890 Other specified postprocedural states; Z98.84 Bariatric surgery status; Z90.711 Acquired absence of uterus with remaining cervical stump; Z87.891 Personal history of nicotine dependence; Z79.899 Other long term (current) drug therapy
CPT/HCPCS: 36415; 71045; 71275; 74177; 76700; 80048; 80053; 80061; 81001; 83690; 83735; 83880; 84100; 84484; 85025; 85027; 85049; 85379; 85610; 85730; 93005; 93010; 93306; 94640; 94760; 94762; 96365; 96366; 96372; 96374; 96375; 99285-25; A9270; C9113; G0378; J0696; J1170; J1650; J1885; J1940; J2060; J2405; J2550; J2765; J2930; J3010; J3411; J3475; J3480; J7030; J7042; J7060; J7512; Q9967

== ENCOUNTER → 2021-06-24 | Outpatient (CLI) | payer OTHER ==
[~2021-06-24] MED LIST changes: +CEFD300 PO; +CEPH500 PO; +FURO40 PO; +FUROSEMIDE20 MG PO; +HYDMOR2 PO; +KETO10 PO; +MELATONIN5 M1 PO; +POTA10T PO; +POTA8 PO; +PRED20 PO; +TAMS.4ER PO; +XANAX0.25 MG PO
== END | disposition home or self-care (01) ==
LOC: LAB 17:25 → LAB SHORT 17:25
DX: R30.9 Painful micturition, unspecified (principal)
CPT/HCPCS: 87086

== ENCOUNTER 2021-08-09 10:32 | Inpatient (IN) | payer OTHER ==
[~2021-08-09] VITALS: Ht 157.5 cm; Wt 76.6 kg
[2021-08-09 11:11] LABS: BASOPHILS ABSOLUTE AUTO 0.04 K/mm3 (0.00-0.23); BASOPHILS PERCENT AUTO 0 % (0-2); EOSINOPHILS ABSOLUTE AUTO 0.02 K/mm3 (0.00-0.68); EOSINOPHILS PERCENT AUTO 0 % (0-6); Hematocrit 43.8 % (33.0-51.0); Hemoglobin 14.4 g/dL (11.5-16.0); IMMATURE GRAN ABSOLUTE AUTO 0.04 K/mm3 (0.00-0.10); IMMATURE GRAN PERCENT AUTO 0 % (0-1); LYMPHOCYTES ABSOLUTE AUTO 1.66 K/mm3 (0.84-5.20); LYMPHOCYTES PERCENT AUTO 15 % (21-46); MONOCYTES ABSOLUTE AUTO 0.73 K/mm3 (0.16-1.47); MONOCYTES PERCENT AUTO 7 % (4-13); Mean Corpuscular HGB 29.9 pg (26.0-34.0); Mean Corpuscular HGB Conc 32.9 g/dL (31.5-36.5); Mean Corpuscular Volume 91 fL (80-100); Mean Platelet Volume 9.8 fL (9.1-12.4); NEUTROPHILS PERCENT AUTO 78 % (41-73); Platelet Count 315 K/mm3 (150-400); RDW Coefficient Variation 16.3 % (11.7-14.2); RDW Standard Deviation 54.2 fL (35.1-46.3); Red Blood Cell Count 4.81 M/mm3 (3.80-5.20); White Blood Cell Count 11.29 K/mm3 (4.00-11.30)
[2021-08-09 11:30] LABS: Albumin, Blood 3.4 g/dL (3.4-5.0); Albumin/Globulin Ratio 0.9 (0.8-1.8); Bilirubin, Total 1.1 mg/dL (0.1-1.0); Bun/Creatinine Ratio 12.9 (12.0-20.0); Calcium, Blood 8.4 mg/dL (8.5-10.1); Creatinine, Blood 0.54 mg/dL (0.40-1.00); Globulin, Blood 3.7 g/dL (2.2-4.0); Potassium, Blood 3.8 mmol/L (3.5-5.5); Total Protein, Blood 7.1 g/dL (6.4-8.2)
[2021-08-09 14:17] LABS: Source, Urine Voided
[2021-08-09 14:23] LABS: Appearance, Urine Clear (Clear); Bilirubin, Urine Neg (Neg); Blood, Urine 1+ (Neg); Color, Urine Yellow (P-Yellow); Glucose Qualitative, Urine Neg (Neg); Ketones, Urine 2+ (Neg); Leukocyte Esterase, Urine Neg (Neg); Nitrite, Urine Neg (Neg); Protein, Urine 1+ (Neg); Urobilinogen, Urine NORM (Normal)
[2021-08-09 14:34] LABS: Bacteria Few /hpf; Squamous Epithelial Cells Few /hpf (Few); White Blood Cells, Urine 0-2 /hpf (0-5)
--- NOTE | 2021-08-09 18:35 | NUR ---
ADMIT NOTE/SHIFT SUMMARY- PT ADMITTED THROUGH THE ED FOR ACUTE PANCREATITIS TO DR CARR. PT ARRIVED ON MEDICAL FLOOR AND WAS EXPRESSIONG NAUSEA, PRN ZOFRAN WAS GIVEN IN THE ED AND NOT AVAILABLE. PT EXPRESSED CONCERN THAT THE DILAUDID DOSE WAS TOO HIGH WHEN SHE RECIEVED IT BEFORE BECAUSE IT MADE THE NAUSEA WORSE AND MADE HER DIZZY. CALLED DR CARR AND RECIEVED AN ORDER FOR IV PHENEGRAN, PO REGLAN, DILAUDID DOSE REDUCED TO 0.5-1 FROM 1-2 MG, AND IVF CHANGED TO LR. IV PHENEGREN WAS EFFECTIVE IN TREATING THE PT NAUSEA AND PAIN SEEMS WELL MANAGED WITH 0.5MG OF IV DILAUDID. PT ON A CLEAR LIQUID DIET AND IS AWARE SHE SHOULD TAKE IT SLOW WHEN DRINKING. PT CURRENTLY IN BED, CALL LIGHT IN REACH NO S&S OF DISTRESS NOTED. PT HAS CHELLY 1PA TO THE BSC SINCE ADMIT D/T MEDICATIONS. WILL CTM AND PASS ON TO NIGHT RN IN BEDSIDE REPORT.
[2021-08-10 04:54] LABS: Hematocrit 40.3 % (33.0-51.0); Hemoglobin 12.9 g/dL (11.5-16.0); Mean Corpuscular HGB 30.1 pg (26.0-34.0); Mean Corpuscular Volume 94 fL (80-100); Mean Platelet Volume 9.5 fL (9.1-12.4); Platelet Count 250 K/mm3 (150-400); RDW Coefficient Variation 16.6 % (11.7-14.2); RDW Standard Deviation 56.4 fL (35.1-46.3); Red Blood Cell Count 4.29 M/mm3 (3.80-5.20); White Blood Cell Count 8.77 K/mm3 (4.00-11.30)
[2021-08-10 05:13] LABS: Bilirubin, Total 1.4 mg/dL (0.1-1.0); Bun/Creatinine Ratio 7.5 (12.0-20.0); Calcium, Blood 8.4 mg/dL (8.5-10.1); Creatinine, Blood 0.67 mg/dL (0.40-1.00); Globulin, Blood 3.1 g/dL (2.2-4.0); Potassium, Blood 3.3 mmol/L (3.5-5.5); Total Protein, Blood 6.1 g/dL (6.4-8.2)
--- NOTE | 2021-08-10 05:51 | NUR ---
SHIFT SUMMARY A/OX4, SBA TO BSC D/T IV NARCOTICS. C/O 10/12 EPIGASTRIC PAIN THAT RADIATES TO BACK AND WORSENS WITH MOVEMENT. MEDICATED WITH 1MG DILAUDID X3 THIS SHIFT. VSS, NO ACUTE CHANGES AT THIS TIME. BED IN LOWEST POSITION WITH CALL LIGHT IN REACH. WILL CONTINUE TO MONITOR AND REPORT TO ONCOMING RN.
--- NOTE | 2021-08-10 20:05 | NUR ---
SHIFT SUMMARY- PT ALERT AND ORIENTED, 1PA TO THE C D/T PAIN MEDICATIONS. MEDICATED FOR PAIN AND NAUSEA PRN. PT DOES NOT CALL FOR PAIN MEDICATION. WHEN STAFF ROUND SHE WILL ASK FOR IT. BEDSIDE REPORT COMPLETED WITH NIGHT RN NO S&S OF DISTRESS NOTED AT THE TIME OF REPORT. PT IN BED, CALL LIGHT IN REACH.
--- NOTE | 2021-08-11 04:00 | NUR ---
0341 - RESPIRATIONS CHARTED 1, WHICH WAS INCORRECT. RESPIRATORY RATE 16.
--- NOTE | 2021-08-11 06:44 | NUR ---
SHIFT SUMMARY - NO ACUTE CHANGES THROUGHOUT THIS SHIFT. PT IS NPO NOW, FOR ABDOMINAL US TODAY. PT HAS BEEN MEDICATED Q 3 HOURS WITH DILAUDED - SEE EMAR. PT MEDICATED X1 FOR NAUSEA - NO FURTHER REQUESTS FOR NAUSEA MEDICINE - NO EMESIS THROUGHOUT THE NIGHT. PT SLEPT FOR INTERMITTENT PERIODS OF TIME, IN BETWEEN DILAUDED DOSES. PT CONTINUES TO REPORT MID ABDOMINAL PAIN.
[2021-08-11 10:01] LABS: BASOPHILS ABSOLUTE AUTO 0.02 K/mm3 (0.00-0.23); BASOPHILS PERCENT AUTO 0 % (0-2); EOSINOPHILS ABSOLUTE AUTO 0.13 K/mm3 (0.00-0.68); EOSINOPHILS PERCENT AUTO 2 % (0-6); Hematocrit 41.5 % (33.0-51.0); Hemoglobin 13.3 g/dL (11.5-16.0); IMMATURE GRAN ABSOLUTE AUTO 0.05 K/mm3 (0.00-0.10); IMMATURE GRAN PERCENT AUTO 1 % (0-1); LYMPHOCYTES ABSOLUTE AUTO 1.33 K/mm3 (0.84-5.20); LYMPHOCYTES PERCENT AUTO 15 % (21-46); MONOCYTES ABSOLUTE AUTO 0.64 K/mm3 (0.16-1.47); MONOCYTES PERCENT AUTO 7 % (4-13); Mean Corpuscular HGB 29.6 pg (26.0-34.0); Mean Corpuscular Volume 92 fL (80-100); Mean Platelet Volume 9.9 fL (9.1-12.4); NEUTROPHILS ABSOLUTE AUTO 6.68 K/mm3 (1.96-9.15); NEUTROPHILS PERCENT AUTO 76 % (41-73); Platelet Count 224 K/mm3 (150-400); RDW Coefficient Variation 16.2 % (11.7-14.2); RDW Standard Deviation 54.6 fL (35.1-46.3); Red Blood Cell Count 4.49 M/mm3 (3.80-5.20); White Blood Cell Count 8.85 K/mm3 (4.00-11.30)
[2021-08-11 10:30] LABS: Albumin, Blood 2.9 g/dL (3.4-5.0); Albumin/Globulin Ratio 0.8 (0.8-1.8); Bilirubin, Total 1.7 mg/dL (0.1-1.0); Calcium, Blood 8.3 mg/dL (8.5-10.1); Creatinine, Blood 0.66 mg/dL (0.40-1.00); Globulin, Blood 3.8 g/dL (2.2-4.0); Potassium, Blood 3.1 mmol/L (3.5-5.5); Total Protein, Blood 6.7 g/dL (6.4-8.2)
--- NOTE | 2021-08-11 18:45 | NUR ---
SHIFT SUMMARY 56 Y FEMALE ADMITTED WITH ACUTE PANCREATITIS. PT HAS C/O 7-8/10 ABD PAIN ACCOMPANIED BY NAUSEA. PT HAS BEEN MEDICATED WITH 1MG OF DILAUDED Q 3-4 HOURS AND THIS DOES SEEM TO CONTROL PAIN TO PT'S COMFORT LEVEL. PT HAD MRI OF ABD TODAY TO R/O ANY BLOCKAGES AND IT WAS NEGATIVE. DR. CARR CHANGED PT TO NPO TO ALLOW FOR BOWEL REST TO SEE IF SYMPTOMS IMPROVE. NO DEFINITIVE D/D PLANS BUT POSSIBLE D/C HOME TOMORROW OF NEXT DAY IF PAIN AND SYMPTOMS MANAGED.
[2021-08-12 07:20] LABS: BASOPHILS ABSOLUTE AUTO 0.03 K/mm3 (0.00-0.23); BASOPHILS PERCENT AUTO 0 % (0-2); EOSINOPHILS ABSOLUTE AUTO 0.12 K/mm3 (0.00-0.68); EOSINOPHILS PERCENT AUTO 1 % (0-6); Hematocrit 39.9 % (33.0-51.0); Hemoglobin 12.8 g/dL (11.5-16.0); IMMATURE GRAN ABSOLUTE AUTO 0.07 K/mm3 (0.00-0.10); IMMATURE GRAN PERCENT AUTO 1 % (0-1); LYMPHOCYTES ABSOLUTE AUTO 1.26 K/mm3 (0.84-5.20); LYMPHOCYTES PERCENT AUTO 14 % (21-46); MONOCYTES ABSOLUTE AUTO 0.76 K/mm3 (0.16-1.47); MONOCYTES PERCENT AUTO 9 % (4-13); Mean Corpuscular HGB 29.9 pg (26.0-34.0); Mean Corpuscular HGB Conc 32.1 g/dL (31.5-36.5); Mean Corpuscular Volume 93 fL (80-100); Mean Platelet Volume 9.9 fL (9.1-12.4); NEUTROPHILS ABSOLUTE AUTO 6.69 K/mm3 (1.96-9.15); NEUTROPHILS PERCENT AUTO 75 % (41-73); Platelet Count 214 K/mm3 (150-400); RDW Coefficient Variation 16.3 % (11.7-14.2); RDW Standard Deviation 54.2 fL (35.1-46.3); Red Blood Cell Count 4.28 M/mm3 (3.80-5.20); White Blood Cell Count 8.93 K/mm3 (4.00-11.30)
[2021-08-12 07:43] LABS: Albumin, Blood 2.7 g/dL (3.4-5.0); Albumin/Globulin Ratio 0.7 (0.8-1.8); Bilirubin, Total 1.2 mg/dL (0.1-1.0); Bun/Creatinine Ratio 9.6 (12.0-20.0); Calcium, Blood 8.2 mg/dL (8.5-10.1); Creatinine, Blood 0.63 mg/dL (0.40-1.00); Globulin, Blood 4.1 g/dL (2.2-4.0); Potassium, Blood 3.3 mmol/L (3.5-5.5); Total Protein, Blood 6.8 g/dL (6.4-8.2)
--- NOTE | 2021-08-12 07:48 | NUR ---
PT A/OX4, VERY PLEASANT AND INDEPENDENT IN ROOM. PT WITH CONTINOUS ABDOMINAL PAIN. RECEIVING DILAUDID 1MG IV Q3H D/T PAIN. PATIENT NPO. PT WITH NO NEW CONCERNS THIS SHIFT.
--- NOTE | 2021-08-12 18:27 | NUR ---
PATIENT IS ALERT AND ORIENTED AND COOPERAIVE [facility]. C/O ABDOMINAL PAIN AND MEDICATED PER EMAR. C/O NAUSEA 3 TIMES THIS SHIFT AND MEDICATED PER EMAR. PATIENT'S IS AT THE BEDSIDE. WILL CONTINUE TO MONITOR
--- NOTE | 2021-08-13 08:25 | NUR ---
PT A/OX4, IV ON LAC NOTED WITH PHLEBITIS-RED, WARM, HARD, SWOLLEN AND PUSS NOTED AT INSERTION SITE. IV D/C AND CLEANED, WARM COMPRESSED APPLIED AND MD NOTIFIED. PT REPORTS SHE FELT LIKE SHE TOLERATED CURRENT DIET HOWEVER DID BECOME NAUSEATED AFTER TAKING TYLENOL FOR A LOW GRADE FEVER. PT STILL REQUIRING DILAUDID Q3H.
--- NOTE | 2021-08-13 11:36 | NUR ---
PER DR CARPENTER. STOP ANY AND ALL IV MEDS. HE WILL D/C AFTER HAS B/M. NEW MEDS FOR THIS STARTED. TO SEE WHAT PAIN MED SHE MAY HAVE PO
--- NOTE | 2021-08-13 12:50 | NUR ---
KEDAR REPORTS LARGE LOOSE B/M JUST PRODUCED. STATES THAT PT REPORTED BEING LIGHT HEADED SOME AFTER BM. RECHECKING B/P. PT ASSISTED BACK TO BED.
--- NOTE | 2021-08-13 14:56 | NUR ---
SPOKE TO DR CARPENTER. VSS, 118/ P 103, PT STILL FEELS BAD. HE OKAY TO D/C. REQUEST NEW VSS PRIOR TO D/C IF STATES FEELING OKAY
[2021-08-13] MEDS ORDERED: MIRALAX17 GM PO (15:01)
[2021-08-13] MEDS ORDERED: VITAMIN B-1100 M1 PO (15:01)
[2021-08-13] MEDS ORDERED: FOLI1 PO (15:01)
--- NOTE | 2021-08-13 15:08 | NUR ---
PT STATES HAS HAD SEVERAL MORE WATERY STOOLS SINCE LACTULOSE. STATES FEELS BETTER, DIZZINESS, LIGHT HEADEDNESS, SCEATS IMPROVED. RECHECKING VITALS SIGNS SOON.
--- NOTE | 2021-08-13 16:08 | NUR ---
DISCHARGE REVIEWED WITH PT. SHE VERBALIZED UNDERSTANDING MEDS AND INST. STATES NOT NAUSEOUS OR FEELING DIZZY . STATES OVERALL DOING BETTER. IV PULLED INTACT. NO TELE WILL BE WHEELED TO DOOR WHEN HUSB HERE.
--- NOTE | 2021-08-13 17:43 | NUR ---
PT WHEELED TO DOOR AT APPROX 1510 BY AIDE. SCHERER WITH PT.
--- NOTE | 2021-08-13 17:44 | NUR ---
DR CARPENTER CALLED. REQUEST I CALL PT AND ADVISE THEM TAKE 2 K+ PILLS FOR NEXT [address] CARPENTER.
== END 2021-08-13 17:53 | disposition home or self-care (01) | DRG 440 ==
LOC: ER 10:32 → ERHOLD 12:38 → MEDS 16:18
PROVIDERS: Emergency Medicine; ADMIT Family Medicine
DX: K85.20 Alcohol induced acute pancreatitis without necrosis or infection (principal); K80.20 Calculus of gallbladder without cholecystitis without obstruction; E80.6 Other disorders of bilirubin metabolism; E87.6 Hypokalemia; K70.9 Alcoholic liver disease, unspecified; F10.20 Alcohol dependence, uncomplicated; Z86.16 Personal history of COVID-19; I27.20 Pulmonary hypertension, unspecified; F41.9 Anxiety disorder, unspecified; Z71.41 Alcohol abuse counseling and surveillance of alcoholic; K21.9 Gastro-esophageal reflux disease without esophagitis; Z88.5 Allergy status to narcotic agent; Z88.8 Allergy status to other drugs, medicaments and biological substances; Z79.899 Other long term (current) drug therapy; Z90.49 Acquired absence of other specified parts of digestive tract; Z98.890 Other specified postprocedural states; Z87.891 Personal history of nicotine dependence; Z90.711 Acquired absence of uterus with remaining cervical stump
CPT/HCPCS: 36415; 74177; 74181; 76705; 80053; 81001; 83690; 85025; 85027; 93005; 93010; 96374-59; 96375; 99285-25; A9270; J1170; J1650; J1885; J2405; J2550; J7030; J7120; Q9967

== ENCOUNTER 2022-02-05 06:30 | Emergency (ER) | payer OTHER ==
[~2022-02-05] VITALS: Ht 154.9 cm; Wt 76.7 kg
[~2022-02-05 06:30] MED LIST changes: +FOLI1 PO; +MIRALAX17 GM PO; +VITAMIN B-1100 M1 PO
[2022-02-05 07:21] LABS: BASOPHILS ABSOLUTE AUTO 0.01 K/mm3 (0.00-0.23); BASOPHILS PERCENT AUTO 0 % (0-2); EOSINOPHILS PERCENT AUTO 2 % (0-6); Hematocrit 38.3 % (33.0-51.0); Hemoglobin 12.5 g/dL (11.5-16.0); IMMATURE GRAN ABSOLUTE AUTO 0.03 K/mm3 (0.00-0.10); IMMATURE GRAN PERCENT AUTO 1 % (0-1); LYMPHOCYTES ABSOLUTE AUTO 1.18 K/mm3 (0.84-5.20); LYMPHOCYTES PERCENT AUTO 21 % (21-46); MONOCYTES ABSOLUTE AUTO 0.51 K/mm3 (0.16-1.47); MONOCYTES PERCENT AUTO 9 % (4-13); Mean Corpuscular HGB 29.1 pg (26.0-34.0); Mean Corpuscular HGB Conc 32.6 g/dL (31.5-36.5); Mean Corpuscular Volume 89 fL (80-100); Mean Platelet Volume 10.1 fL (9.1-12.4); NEUTROPHILS ABSOLUTE AUTO 3.73 K/mm3 (1.96-9.15); NEUTROPHILS PERCENT AUTO 67 % (41-73); Platelet Count 295 K/mm3 (150-400); RDW Coefficient Variation 13.4 % (11.7-14.2); RDW Standard Deviation 43.9 fL (35.1-46.3); White Blood Cell Count 5.56 K/mm3 (4.00-11.30)
[2022-02-05 07:34] LABS: Albumin, Blood 2.9 g/dL (3.4-5.0); Albumin/Globulin Ratio 0.8 (0.8-1.8); Bilirubin, Total 0.3 mg/dL (0.1-1.0); Bun/Creatinine Ratio 16.1 (12.0-20.0); Calcium, Blood 8.1 mg/dL (8.5-10.1); Creatinine, Blood 0.62 mg/dL (0.40-1.00); Globulin, Blood 3.5 g/dL (2.2-4.0); Potassium, Blood 4.2 mmol/L (3.5-5.5); Total Protein, Blood 6.4 g/dL (6.4-8.2)
== END 2022-02-05 08:54 | disposition home or self-care (01) ==
LOC: ER 06:30
PROVIDERS: Emergency Medicine
DX: R07.2 Precordial pain (principal); K21.9 Gastro-esophageal reflux disease without esophagitis; Z88.5 Allergy status to narcotic agent; Z88.8 Allergy status to other drugs, medicaments and biological substances; Z79.899 Other long term (current) drug therapy; Z87.891 Personal history of nicotine dependence
CPT/HCPCS: 36415; 71045; 80053; 84484; 85025; 93005; 93010

== ENCOUNTER → 2022-04-12 | Outpatient (CLI) | payer OTHER ==
[2022-04-12 15:47] LABS: BASOPHILS ABSOLUTE AUTO 0.03 K/mm3 (0.00-0.23); BASOPHILS PERCENT AUTO 1 % (0-2); EOSINOPHILS ABSOLUTE AUTO 0.07 K/mm3 (0.00-0.68); EOSINOPHILS PERCENT AUTO 1 % (0-6); Hemoglobin 12.9 g/dL (11.5-16.0); IMMATURE GRAN ABSOLUTE AUTO 0.03 K/mm3 (0.00-0.10); IMMATURE GRAN PERCENT AUTO 1 % (0-1); LYMPHOCYTES ABSOLUTE AUTO 1.06 K/mm3 (0.84-5.20); LYMPHOCYTES PERCENT AUTO 18 % (21-46); MONOCYTES ABSOLUTE AUTO 0.44 K/mm3 (0.16-1.47); MONOCYTES PERCENT AUTO 8 % (4-13); Mean Corpuscular HGB 27.9 pg (26.0-34.0); Mean Corpuscular HGB Conc 32.3 g/dL (31.5-36.5); Mean Corpuscular Volume 86 fL (80-100); Mean Platelet Volume 10.5 fL (9.1-12.4); NEUTROPHILS PERCENT AUTO 72 % (41-73); Platelet Count 290 K/mm3 (150-400); RDW Standard Deviation 44.2 fL (35.1-46.3); Red Blood Cell Count 4.63 M/mm3 (3.80-5.20); White Blood Cell Count 5.83 K/mm3 (4.00-11.30)
== END | disposition home or self-care (01) ==
LOC: LAB SHORT 12:46 → LAB 12:46
PROVIDERS: Family Medicine
DX: R53.83 Other fatigue (principal)
CPT/HCPCS: 82306; 84443; 85025

== ENCOUNTER 2024-12-10 13:55 | Emergency (ER) | payer OTHER ==
[~2024-12-10] VITALS: Ht 154.9 cm; Wt 68.0 kg
[2024-12-10] MEDS ORDERED: Ondansetron HCl 2 MG / ML 2ML Vial IV ONE (15:10)
[2024-12-10 15:21] LABS: BASOPHILS ABSOLUTE AUTO 0.03 K/mm3 (0.00-0.23); BASOPHILS PERCENT AUTO 0 % (0-2); EOSINOPHILS ABSOLUTE AUTO 0.06 K/mm3 (0.00-0.68); EOSINOPHILS PERCENT AUTO 1 % (0-6); Hematocrit 40.8 % (33.0-51.0); Hemoglobin 13.8 g/dL (11.5-16.0); IMMATURE GRAN ABSOLUTE AUTO 0.05 K/mm3 (0.00-0.10); IMMATURE GRAN PERCENT AUTO 1 % (0-1); LYMPHOCYTES ABSOLUTE AUTO 1.23 K/mm3 (0.84-5.20); LYMPHOCYTES PERCENT AUTO 13 % (21-46); MONOCYTES ABSOLUTE AUTO 0.75 K/mm3 (0.16-1.47); MONOCYTES PERCENT AUTO 8 % (4-13); Mean Corpuscular HGB Conc 33.8 g/dL (31.5-36.5); Mean Corpuscular Volume 90 fL (80-100); NEUTROPHILS ABSOLUTE AUTO 7.60 K/mm3 (1.96-9.15); NEUTROPHILS PERCENT AUTO 78 % (41-73); NRBC ABSOLUTE 0.00 K/mm3 (0.00-0.02); NRBC Auto 0.0 /100 WBC (0.0-0.2); Platelet Count 266 K/mm3 (150-400); RDW Coefficient Variation 13.8 % (11.7-14.2); RDW Standard Deviation 45.7 fL (35.1-46.3)
[2024-12-10 15:47] LABS: Alanine Aminotransfer (ALT/SGP 22.0 U/L (12-78); Albumin, Blood 3.4 g/dL (3.4-5.0); Albumin/Globulin Ratio 0.9 (0.8-1.8); Anion Gap 7.0 mmol/L (3-11); Aspartate Aminotrans (AST/SGOT 21.0 U/L (12-37); Bilirubin, Total 0.6 mg/dL (0.1-1.0); Blood Urea Nitrogen 9.0 mg/dL (8-24); CO2, Blood 25.0 mmol/L (21-32); Calcium, Blood 8.1 mg/dL (8.5-10.1); Chloride, Blood 108.0 mmol/L (98-108); Creatinine, Blood 0.57 mg/dL (0.40-1.00); Globulin, Blood 3.8 g/dL (2.2-4.0); Glucose, Blood 96.0 mg/dL (70-99); Potassium, Blood 3.7 mmol/L (3.5-5.5); Sodium, Blood 136.0 mmol/L (136-145); Total Protein, Blood 7.2 g/dL (6.4-8.2)
[2024-12-10] MEDS ORDERED: OxyCODONE 5 mg/Acetamin 325 mg TABLET PO ONE (16:25)
[2024-12-10] MEDS ORDERED: NAPR500 PO (16:27)
[2024-12-10] MEDS ORDERED: PRED20 PO (16:27)
[2024-12-10] MEDS ORDERED: OXAYDO5 M1 PO (16:28)
[2024-12-10 16:30] VITALS: BP 126/76
== END 2024-12-10 16:52 | disposition home or self-care (01) ==
LOC: ER 13:55
PROVIDERS: Student in an Organized Health Care Education/Training Program
DX: M10.9 Gout, unspecified (principal); Z88.5 Allergy status to narcotic agent; Z88.8 Allergy status to other drugs, medicaments and biological substances; Z79.899 Other long term (current) drug therapy; Z87.891 Personal history of nicotine dependence
CPT/HCPCS: 73562-RT; 80053; 85025; 99284-25; A9270

== ENCOUNTER → 2025-02-18 | Emergency (ER) | payer OTHER ==
[~2025-02-18] VITALS: Ht 154.9 cm; Wt 72.6 kg
[~2025-02-18] MED LIST changes: +ONDA4ODT MM; +OXAYDO5 M1 PO; +Ondansetron 4 MG SoluTab SL ONE; +Ondansetron HCl 2 MG / ML 2ML Vial IV PRN; +RX Prepack 6 Tabs Oxycodone 5mg UD ONE; +SERT100 PO
[2025-02-18 18:18] VITALS: BP 141/103
[2025-02-18 18:57] LABS: BASOPHILS ABSOLUTE AUTO 0.03 K/mm3 (0.00-0.23); BASOPHILS PERCENT AUTO 0 % (0-2); EOSINOPHILS ABSOLUTE AUTO 0.14 K/mm3 (0.00-0.68); EOSINOPHILS PERCENT AUTO 2 % (0-6); Hematocrit 34.0 % (33.0-51.0); Hemoglobin 11.3 g/dL (11.5-16.0); IMMATURE GRAN ABSOLUTE AUTO 0.02 K/mm3 (0.00-0.10); IMMATURE GRAN PERCENT AUTO 0 % (0-1); LYMPHOCYTES ABSOLUTE AUTO 0.64 K/mm3 (0.84-5.20); LYMPHOCYTES PERCENT AUTO 8 % (21-46); MONOCYTES ABSOLUTE AUTO 0.49 K/mm3 (0.16-1.47); MONOCYTES PERCENT AUTO 6 % (4-13); Mean Corpuscular HGB Conc 33.2 g/dL (31.5-36.5); Mean Corpuscular Volume 93 fL (80-100); NEUTROPHILS ABSOLUTE AUTO 6.69 K/mm3 (1.96-9.15); NEUTROPHILS PERCENT AUTO 84 % (41-73); NRBC ABSOLUTE 0.00 K/mm3 (0.00-0.02); NRBC Auto 0.0 /100 WBC (0.0-0.2); Platelet Count 135 K/mm3 (150-400); RDW Coefficient Variation 14.1 % (11.7-14.2); RDW Standard Deviation 48.1 fL (35.1-46.3)
[2025-02-18 19:20] LABS: Alanine Aminotransfer (ALT/SGP 15.0 U/L (12-78); Albumin, Blood 2.9 g/dL (3.4-5.0); Albumin/Globulin Ratio 0.8 (0.8-1.8); Anion Gap 10.0 mmol/L (3-11); Aspartate Aminotrans (AST/SGOT 17.0 U/L (12-37); Bilirubin, Total 0.7 mg/dL (0.1-1.0); Blood Urea Nitrogen 10.0 mg/dL (8-24); CO2, Blood 20.0 mmol/L (21-32); Calcium, Blood 8.2 mg/dL (8.5-10.1); Chloride, Blood 111.0 mmol/L (98-108); Creatinine, Blood 0.71 mg/dL (0.40-1.00); Globulin, Blood 3.7 g/dL (2.2-4.0); Glucose, Blood 93.0 mg/dL (70-99); Potassium, Blood 3.1 mmol/L (3.5-5.5); Sodium, Blood 138.0 mmol/L (136-145); Total Protein, Blood 6.6 g/dL (6.4-8.2)
[2025-02-18 19:53] LABS: Source, Urine Clean Catch
[2025-02-18 19:58] LABS: Bilirubin, Urine Neg (Neg); Color, Urine Yellow (P-Yellow); Glucose Qualitative, Urine Neg (Neg); Ketones, Urine 3+ (Neg); Leukocyte Esterase, Urine 3+ (Neg); Protein, Urine 2+ (Neg); Specific Gravity, Urine 1.015 (1.003-1.022); Urobilinogen, Urine 1+ (Normal)
[2025-02-18 20:06] LABS: Red Blood Cells, Urine 0-2 /hpf (0-2)
== END ==
LOC: ER 18:06
PROVIDERS: Emergency Medicine
DX: K85.90 Acute pancreatitis without necrosis or infection, unspecified (principal); K86.1 Other chronic pancreatitis; E87.6 Hypokalemia; D69.6 Thrombocytopenia, unspecified; D64.9 Anemia, unspecified; K21.9 Gastro-esophageal reflux disease without esophagitis; I11.0 Hypertensive heart disease with heart failure; I50.810 Right heart failure, unspecified; E78.5 Hyperlipidemia, unspecified; Z87.891 Personal history of nicotine dependence; Z90.49 Acquired absence of other specified parts of digestive tract; Z88.5 Allergy status to narcotic agent; Z88.8 Allergy status to other drugs, medicaments and biological substances; Z79.899 Other long term (current) drug therapy
CPT/HCPCS: 76705; 80053; 81001; 83690; 84484; 85025; 93005; 93010; 96374; 99284-25; A9270; J2405